=== PATIENT | female | born 1960 | race Caucasian/White ===

== ENCOUNTER 2022-06-07 20:03 | Emergency (ER) | payer BC ==
[~2022-06-07] VITALS: Ht 170.2 cm; Wt 78.0 kg
[2022-06-07] MEDS ORDERED: Percocet 5-3251 EACH PO (23:33)
== END 2022-06-08 00:51 | disposition home or self-care (01) ==
LOC: ER 20:03
DX: S42.211A Unspecified displaced fracture of surgical neck of right humerus, initial encounter for closed fracture (principal); W18.30XA Fall on same level, unspecified, initial encounter
CPT/HCPCS: 73030; 73060; A9270; J1170; J2270; J2405

== ENCOUNTER 2022-07-14 18:44 | Inpatient (IN) | payer BC ==
[~2022-07-14] VITALS: Ht 165.1 cm; Wt 72.0 kg
[~2022-07-14 18:44] MED LIST: Percocet 5-3251 EACH PO
[2022-07-14 19:37] LABS: BASOPHILS ABSOLUTE AUTO 0.06 K/mm3 (0.00-0.23); BASOPHILS PERCENT AUTO 1 % (0-2); EOSINOPHILS ABSOLUTE AUTO 0.02 K/mm3 (0.00-0.68); EOSINOPHILS PERCENT AUTO 0 % (0-6); Hematocrit 32.4 % (33.0-51.0); Hemoglobin 10.9 g/dL (11.5-16.0); IMMATURE GRAN ABSOLUTE AUTO 0.04 K/mm3 (0.00-0.10); IMMATURE GRAN PERCENT AUTO 1 % (0-1); LYMPHOCYTES ABSOLUTE AUTO 0.76 K/mm3 (0.84-5.20); LYMPHOCYTES PERCENT AUTO 14 % (21-46); MONOCYTES ABSOLUTE AUTO 1.07 K/mm3 (0.16-1.47); MONOCYTES PERCENT AUTO 19 % (4-13); Mean Corpuscular HGB 35.2 pg (26.0-34.0); Mean Corpuscular HGB Conc 33.6 g/dL (31.5-36.5); Mean Corpuscular Volume 105 fL (80-100); Mean Platelet Volume 9.9 fL (9.1-12.4); NEUTROPHILS ABSOLUTE AUTO 3.65 K/mm3 (1.96-9.15); NEUTROPHILS PERCENT AUTO 65 % (41-73); Platelet Count 151 K/mm3 (150-400); RDW Coefficient Variation 13.3 % (11.7-14.2); RDW Standard Deviation 51.5 fL (35.1-46.3)
[2022-07-14 20:05] LABS: Alanine Aminotransfer (ALT/SGP 59 U/L (12-78); Albumin, Blood 3.4 g/dL (3.4-5.0); Albumin/Globulin Ratio 0.9 (0.8-1.8); Alk Phos 121 U/L (50-136); Anion Gap 18 mmol/L (6-16); Aspartate Aminotrans (AST/SGOT 127 U/L (12-37); Blood Urea Nitrogen 20 mg/dL (8-24); Bun/Creatinine Ratio 27.8 (12.0-20.0); CO2, Blood 22 mmol/L (21-32); Calcium, Blood 8.5 mg/dL (8.5-10.1); Chloride, Blood 96 mmol/L (98-108); Creatinine, Blood 0.72 mg/dL (0.40-1.00); Globulin, Blood 3.7 g/dL (2.2-4.0); Glomerular Filtration Rate 93 (60-); Glucose, Blood 177 mg/dL (70-99); Potassium, Blood 2.7 mmol/L (3.5-5.5); Sodium, Blood 136 mmol/L (136-145); Total Protein, Blood 7.1 g/dL (6.4-8.2)
[2022-07-14 20:58] LABS: Ethanol (Alcohol), Blood, Med <3 mg/dL
[2022-07-14 21:01] LABS: Magnesium, Blood 1.1 mg/dL (1.6-2.4)
[2022-07-14 22:48] LABS: Base Excess Venous -3.8 mmol/L; Bicarbonate Venous 21.6 mmol/L (24.0-30.0); PCO2 Venous 35.2 mmHg (38-42); pH Blood Venous 7.39 (7.34-7.37)
[2022-07-14 23:15] LABS: International Normalized Ratio 1.07; Prothrombin Time Results 11.2 Sec (9.7-11.5)
[2022-07-15] VITALS (23 sets, daily range): BP systolic 112–161; BP diastolic 68–99
[2022-07-15 03:49] LABS: BASOPHILS ABSOLUTE AUTO 0.02 K/mm3 (0.00-0.23); BASOPHILS PERCENT AUTO 1 % (0-2); EOSINOPHILS PERCENT AUTO 0 % (0-6); Hematocrit 29.7 % (33.0-51.0); IMMATURE GRAN ABSOLUTE AUTO 0.03 K/mm3 (0.00-0.10); IMMATURE GRAN PERCENT AUTO 1 % (0-1); LYMPHOCYTES ABSOLUTE AUTO 0.18 K/mm3 (0.84-5.20); LYMPHOCYTES PERCENT AUTO 7 % (21-46); MONOCYTES ABSOLUTE AUTO 0.17 K/mm3 (0.16-1.47); MONOCYTES PERCENT AUTO 6 % (4-13); Mean Corpuscular HGB 35.2 pg (26.0-34.0); Mean Corpuscular HGB Conc 33.7 g/dL (31.5-36.5); Mean Corpuscular Volume 105 fL (80-100); Mean Platelet Volume 9.8 fL (9.1-12.4); NEUTROPHILS ABSOLUTE AUTO 2.25 K/mm3 (1.96-9.15); NEUTROPHILS PERCENT AUTO 85 % (41-73); Platelet Count 129 K/mm3 (150-400); RDW Coefficient Variation 13.3 % (11.7-14.2); RDW Standard Deviation 50.5 fL (35.1-46.3); Red Blood Cell Count 2.84 M/mm3 (3.80-5.20); White Blood Cell Count 2.65 K/mm3 (4.00-11.30)
[2022-07-15 04:10] LABS: Albumin/Globulin Ratio 0.9 (0.8-1.8); Bilirubin, Total 1.7 mg/dL (0.1-1.0); Bun/Creatinine Ratio 31.5 (12.0-20.0); Calcium, Blood 7.9 mg/dL (8.5-10.1); Creatinine, Blood 0.54 mg/dL (0.40-1.00); Globulin, Blood 3.4 g/dL (2.2-4.0); Magnesium, Blood 2.3 mg/dL (1.6-2.4); Total Protein, Blood 6.4 g/dL (6.4-8.2)
--- NOTE | 2022-07-15 04:40 | NUR ---
END OF SHIFT CIWA 21 ON ADMISSION AND TREATED PER PROTOCOL, BLADDER SCANS X 2 FOLLOWED BY STRAIGHT CATH, UO ADEQUATE, DARK, YELLOW, 1 L NS, MAG AND K REPLACED, 2LPM NC, VSS
[2022-07-15 08:45] LABS: Source, Urine Straight Cath
[2022-07-15 08:49] LABS: Appearance, Urine Clear (Clear); Bilirubin, Urine Neg (Neg); Blood, Urine 1+ (Neg); Color, Urine Yellow (P-Yellow); Glucose Qualitative, Urine 3+ (Neg); Ketones, Urine 4+ (Neg); Leukocyte Esterase, Urine 1+ (Neg); Nitrite, Urine Neg (Neg); Protein, Urine 2+ (Neg); Specific Gravity, Urine 1.015 (1.003-1.022); Urobilinogen, Urine 2+ (Normal); pH, Urine 6.5 (5.0-8.0)
[2022-07-15 09:04] LABS: Bacteria Few /hpf; Mucus Light (0-Heavy); Red Blood Cells, Urine 0-2 /hpf (0-2); Squamous Epithelial Cells Rare /hpf (Few); White Blood Cells, Urine 0-2 /hpf (0-5)
[2022-07-15 15:43] LABS: Albumin, Blood 2.9 g/dL (3.4-5.0); Anion Gap 12 mmol/L (6-16); Blood Urea Nitrogen 15 mg/dL (8-24); Bun/Creatinine Ratio 30.3 (12.0-20.0); CO2, Blood 22 mmol/L (21-32); Calcium, Blood 8.1 mg/dL (8.5-10.1); Chloride, Blood 106 mmol/L (98-108); Glomerular Filtration Rate 105 (60-); Glucose, Blood 173 mg/dL (70-99); Phosphorus, Blood 0.6 mg/dL (2.5-4.9); Potassium, Blood 3.8 mmol/L (3.5-5.5); Sodium, Blood 140 mmol/L (136-145)
--- NOTE | 2022-07-15 18:46 | NUR ---
END OF SHIFT: FANG NEEDED SOME LARGE DOSES OF ATIVAN IN ORDER TO KEEP CIWA BELOW 18. PATIENT HAS BEEN RESPONDING WELL MINUS SLOWLY INCREASED QT. PROVIDER AWARE. PATIENT NEEDED ELECTROLYTE REPLACEMENT. PHOS RUNNING. FANG HAS BEEN COMPLIANT WITH STAYING IN BED Q2 REPOSITIONS HAD RECIEVED 3 STRAGIHT CATHS BEFORE NORWOOD PLACEMENT PATIENT DIURESING. EXP WHEEZES THROUGHOUT THAT IS NOT RESPIRATORY RELATED. BNP WAS ELEVATED AND PENDING AN ECHO LASIX GIVEN AND DIURESING WELL. WILL CONTINUE TO MONITOR UNTIL SHIFT CHANGE.
[2022-07-15] MEDS ORDERED: Seroquel Xr50 MG PO (21:58)
[2022-07-15] MEDS ORDERED: OMEP20ER PO (21:59)
[2022-07-15] MEDS ORDERED: Prozac20 MG PO (21:59)
[2022-07-15] MEDS ORDERED: MELO7.5 PO (22:00)
[2022-07-16] VITALS (7 sets, daily range): BP systolic 124–164; BP diastolic 78–99
[2022-07-16 04:24] LABS: Anion Gap 11 mmol/L (6-16); Blood Urea Nitrogen 14 mg/dL (8-24); Bun/Creatinine Ratio 33.2 (12.0-20.0); CO2, Blood 27 mmol/L (21-32); Calcium, Blood 7.9 mg/dL (8.5-10.1); Chloride, Blood 102 mmol/L (98-108); Creatinine, Blood 0.42 mg/dL (0.40-1.00); Glomerular Filtration Rate 109 (60-); Glucose, Blood 174 mg/dL (70-99); Magnesium, Blood 1.7 mg/dL (1.6-2.4); Phosphorus, Blood 2.8 mg/dL (2.5-4.9); Potassium, Blood 3.1 mmol/L (3.5-5.5); Sodium, Blood 140 mmol/L (136-145)
--- NOTE | 2022-07-16 07:25 | NUR ---
SHIFT SUMMARY PT A/Ox2 BUT REMAINS VERY SLEEPY/LETHARGIC T/O MOST OF THE SHIFT. CONFUSED TO WHERE SHE IS OR HER CURRENTLY SITUATION. CIWA SCORES HAVE BEEN MINIMAL RANGING FROM 8-11. PT MEDICATED ORDERED VIA EMAR. MAINTAINED SPO2 >95% ON RA WELL BIPAP WHEN SHE SLEEPS. NO REPORTS OF SOB OR DYSPNEA REPORTED DURING THE SHIFT. CARDIAC ESPINAL, NO REPORTS OF CP OR PRESSURE, SBP HAS BEEN ELEVATED, BUT PRN LABETALOL WAS NOT NEEDED. NORWOOD CATH PATENT AND DRAINING YELLOW/MOSHE COLORED URINE. PT REPOSITIONED 2 HOURS ORDERED. NO NEW ORDERS AT THIS TIME, WILL REPORT TO ONCOMING RN. MANDI GA T/O THE SHIFT
--- NOTE | 2022-07-16 10:27 | NUR ---
THIS RN CALLED DR. BRENNAN TO DISCUSS LIBRIUM AND HOME MEDS. DR. BRENNAN TO PLACE ORDERS.
--- NOTE | 2022-07-16 10:45 | NUR ---
PT A&O2-3, PLEASANT AND COOPERATIVE WITH CARE. LETHARGIC, BUT EASILY AROUSABLE. TREMORS PRESENT. PT STATED SHE WAS ANXIOUS AND SLIGHTLY AGGITATED THIS MORNING, MEDICATED PER MAY. PT BARELY TOUCHED HER BREAKFAST, DENIED NAUSEA/VOMITING. SHE DID DRINK 120ML'S OF ORANGE JUICE WITH HER MORNING MEDICATIONS. EXPIRATORY WHEEZES AUSCULTATED THROUGHOUT LUNGS. PT ON ROOM AIR SATING ABOVE 94%, DENIES SOB, OCCASIONAL COUGH. HR SR/ST 90'S-100'S. PT DENIES CHEST PAIN/PRESSURE. BRUISING OF R UPPER ARM, PREVIOUS FX FROM FALL A COUPLE MONTHS AGO PER PT AND REPORT. NORWOOD CATH IN PLACE AND DRAINING TO GRAVITY, MOSHE COLORED URINE. PT RESTING IN BED WITH CALL LIGHT WITHIN REACH.
--- NOTE | 2022-07-16 14:19 | NUR ---
PT STATED SHE WANTED TO USE RESTROOM. ATTEMPTED TO GET PT UP TO BEDSIDE COMMODE. PT MADE IT TO EDGE OF BED, SOB, R ARM PAIN. LAID PT BACK DOWN FOR BED GALVAN INSTEAD. ONCE ON BED GALVAN PT STATED SHE DIDN'T HAVE TO GO TO THE BATHROOM. PT HAD A SMEAR. ARIAS AREA, COCCYS, AND NORWOOD TUBING CLEANED THOROUGHLY. MEPILEX REPLACED. SMALL AREA OF EXCORIATED SKIN ON COCCYS, BARRIER CREAM APPLIED. PT GIVEN A VANILLA ENSURE. PT RESTING UPRIGHT IN BED WATCHING TV. CALL LIGHT WITHIN REACH.
--- NOTE | 2022-07-16 18:50 | NUR ---
NO ACUTE CHANGES, SEE PREVIOUS NOTES. CIWA'S PERFORMED AND PT MEDICATED PER MAR. NO CHANGES TO TELE, HR SR/ST 90'S-100'S. PT CONTINUES TO DENY SOB/CHEST PAIN/PRESURE. PT RESTING IN BED WITH TV ON. CALL LIGHT WITHIN REACH.
--- NOTE | 2022-07-16 18:57 | NUR ---
THIS RN HAS REVIEWED AND AGREES WITH ALL WORKERS COMPENSATION EXAMINER DOCUMENTATION.
[2022-07-17] VITALS (7 sets, daily range): BP systolic 122–164; BP diastolic 84–108
[2022-07-17 05:17] LABS: BASOPHILS PERCENT AUTO 0 % (0-2); EOSINOPHILS PERCENT AUTO 0 % (0-6); Hematocrit 31.5 % (33.0-51.0); Hemoglobin 10.6 g/dL (11.5-16.0); IMMATURE GRAN ABSOLUTE AUTO 0.14 K/mm3 (0.00-0.10); IMMATURE GRAN PERCENT AUTO 3 % (0-1); LYMPHOCYTES ABSOLUTE AUTO 0.64 K/mm3 (0.84-5.20); LYMPHOCYTES PERCENT AUTO 13 % (21-46); MONOCYTES ABSOLUTE AUTO 0.39 K/mm3 (0.16-1.47); MONOCYTES PERCENT AUTO 8 % (4-13); Mean Corpuscular HGB 34.8 pg (26.0-34.0); Mean Corpuscular HGB Conc 33.7 g/dL (31.5-36.5); Mean Corpuscular Volume 103 fL (80-100); Mean Platelet Volume 9.7 fL (9.1-12.4); NEUTROPHILS ABSOLUTE AUTO 3.94 K/mm3 (1.96-9.15); NEUTROPHILS PERCENT AUTO 77 % (41-73); Platelet Count 153 K/mm3 (150-400); RDW Coefficient Variation 13.1 % (11.7-14.2); RDW Standard Deviation 49.6 fL (35.1-46.3); Red Blood Cell Count 3.05 M/mm3 (3.80-5.20); White Blood Cell Count 5.11 K/mm3 (4.00-11.30)
[2022-07-17 06:04] LABS: Albumin, Blood 2.9 g/dL (3.4-5.0); Albumin/Globulin Ratio 0.9 (0.8-1.8); Bilirubin, Total 1.2 mg/dL (0.1-1.0); Bun/Creatinine Ratio 38.4 (12.0-20.0); Calcium, Blood 8.2 mg/dL (8.5-10.1); Creatinine, Blood 0.47 mg/dL (0.40-1.00); Globulin, Blood 3.4 g/dL (2.2-4.0); Magnesium, Blood 1.6 mg/dL (1.6-2.4); Phosphorus, Blood 4.2 mg/dL (2.5-4.9); Potassium, Blood 3.2 mmol/L (3.5-5.5); Total Protein, Blood 6.3 g/dL (6.4-8.2)
--- NOTE | 2022-07-17 06:17 | NUR ---
WEDDING COORDINATOR SUMMARY ASSUMED CARE OF THE PT AT 1900. SHE IS ALERT AND ORIENTED X2-3, LETHARGIC AFTER WITHDRAWAL MEDICATION. PT CIWAS RANGING FROM 7 TO 13 OVER THE PAST 24 HOURS. GIVEN ONE DOSE OF IV ATIVAN AND ONE DOSE OF 50 MG OF LIBRIUM THIS SHIFT. PT GIVEN ONE DOSE OF PAIN MEDICATION FOR THE RIGHT HUMERUS FX. SHE IS REQUESTING TO GET UP BUT IS VERY WEAK AND TREMULOUS. SINUS AND SINUS TACH ON THE TELE. SATURATION MID TO HIGH 90S ON RA. CPAP WORN AT HS. TWO LIQUID BMS THIS SHIFT. NO ORAL INTAKE.
--- NOTE | 2022-07-17 19:27 | NUR ---
SHIFT SUMMARY PT A/OX 3 AND COOPERATIVE OF CARE. PT AWARE OF ETOH WITHDRAWALS AND SYMPTOMS. PT VSS THROUGHOUT SHIFT WITH 02 SATS IN THE 90'S ON RA. NO REPORT OF CHEST PAIN/PRESSURE THROUGHOUT SHIFT. PT REPORTS PAIN OF RIGHT SHOULDERM TREATED PER EMAR. NO REPORT OF SOB/DYSPNEA THROUGHOUT SHIFT. NORWOOD IN PLACE DRAINING TO GRAVITY. PT ATTEMPTED TO GET OUT OF BED TWICE DURING SHIFT REPORTING "I HAVE TO GO PEE." PT REMINDED THAT A NORWOOD IS IN PLACE AND REDIRECTED TO REMAIN IN BED. PT CIWA RANGED 10-13 THROUGHOUT SHIFT, TREATED PER EMAR.
[2022-07-18 04:08] VITALS: BP 152/101
--- NOTE | 2022-07-18 04:46 | NUR ---
SHIFT SUMMARY NO ACUTE CHANGES. VSS. REMAINS IN SHOULDER IMMOBILIZER. CIWA'S BEING MANAGED PER EMAR. TREMORS CONTINUE TO BE THE MOST EXTREME WITHDRAWAL SYMPTOM BEING EXPERIENCED BY PATIENT. PT COMPLETELY AXO TO PLACE AND SITUATION. NOT IMPULSIVE FOR THIS RN. CONTINENT. NORWOOD PATENT AND RAINING. POWERLIDE PATENT. BED ALARM IN PLACE.
[2022-07-18 08:11] VITALS: BP 136/102
[2022-07-18 10:11] LABS: Albumin, Blood 2.9 g/dL (3.4-5.0); Anion Gap 6 mmol/L (6-16); Blood Urea Nitrogen 20 mg/dL (8-24); Bun/Creatinine Ratio 37.9 (12.0-20.0); CO2, Blood 30 mmol/L (21-32); Chloride, Blood 104 mmol/L (98-108); Creatinine, Blood 0.53 mg/dL (0.40-1.00); Glomerular Filtration Rate 103 (60-); Glucose, Blood 120 mg/dL (70-99); Magnesium, Blood 1.6 mg/dL (1.6-2.4); Phosphorus, Blood 4.7 mg/dL (2.5-4.9); Potassium, Blood 3.6 mmol/L (3.5-5.5); Sodium, Blood 140 mmol/L (136-145)
[2022-07-18 13:11] VITALS: BP 140/99
[2022-07-18 16:27] VITALS: BP 121/87
--- NOTE | 2022-07-18 18:44 | NUR ---
SHIFT SUMMARY DROWSY, DISORIENTED, FORGETFUL, CIWAS 8-15. LIBRIUM 50 X2, NO ATIVAN THIS SHIFT. REPORTS HEADACHE, ANXIETY, UNSURE OF DATE, UNSURE OF REASON FOR ADMISSION, GROSS TREMORS, DIZZY, WEAK. TAKES FREQUENT NAPS. O2 WEANED TO RA THIS SHIFT, PER REPORT REQUIRES CPAP WITH 2L O2 AT NOC FOR DESAT. NO DESAT THIS SHIFT. TELE SR 80S, WITH OCC RUNS OF ST. TOLERATES BITES OF REG DIET AND THINS LIQUIDS. NEEDS ENCOURAGEMENT TO TAKE FLUIDS. LOW URINE OUTPUT, NORWOOD DC'D IN AM, 350 OUTPUT. 2 PERSON MAX ASSIST WITH GB [place] [facility] [place] R HUMERUS FX IN IMMOBILIZER. PG TO MICHELLE FLUSHES EASILY, DOES NOT DRAW. MEDICATED FOR PAIN PER EMAR. BRUSIING NOTED TO R ARM. COCCYX RED, MEPILEX IN PLACE. ATTENDS IN PLACE. Q2 HR TURN. PLAN FOR DC TO SNF VS INPATIENT RESIDENT SUBSTANCE TREATMENT ONCE PAST ETOH WITHDRAWAL. CARE MANAGEMENT UPDATED AT END OF DAY.
[2022-07-18 20:54] VITALS: BP 122/86
[2022-07-18 23:53] VITALS: BP 146/107
[2022-07-19 04:15] VITALS: BP 131/96
[2022-07-19 05:15] LABS: Albumin, Blood 2.7 g/dL (3.4-5.0); Anion Gap 6 mmol/L (6-16); Blood Urea Nitrogen 16 mg/dL (8-24); Bun/Creatinine Ratio 35.1 (12.0-20.0); CO2, Blood 29 mmol/L (21-32); Chloride, Blood 102 mmol/L (98-108); Creatinine, Blood 0.46 mg/dL (0.40-1.00); Glomerular Filtration Rate 107 (60-); Glucose, Blood 157 mg/dL (70-99); Magnesium, Blood 1.8 mg/dL (1.6-2.4); Phosphorus, Blood 4.8 mg/dL (2.5-4.9); Potassium, Blood 4.2 mmol/L (3.5-5.5); Sodium, Blood 137 mmol/L (136-145)
--- NOTE | 2022-07-19 06:11 | NUR ---
SHIFT SUMMARY PATIENT ALERT BUT FALLS ASLEEP EASILY, ORIENTED x2-3. VITALS STABLE, PATIENT WORE CPAP FOR MAJORITY OF SHIFT WITH SPO2 >92%. CIWA <8 DURING THE SHIFT, NO MEDICATIONS NEEDED. IMMOBILIZER TO RIGHT ARM IN PLACE. INCONTINENT, ATTENDS IN PLACE. TURNED Q2. NO OTHER CHANGES, WILL REPORT TO DAY SHIFT RN.
--- NOTE | 2022-07-19 08:00 | NUR ---
ASSUMED CARE PT SITTING UP ON THE EDGE OF THE BED WITH PHYSICAL THERAPY. PT. ALERT THIS AM, ANSWERING QUESTIONS. SEE CIWA ASSESSMENT. PT. PAINFUL WITH MOVEMENT, AND VERY WEAK. PT. VSS THIS AM, REMAINS ON RA AT THIS TIME.
[2022-07-19 09:15] VITALS: BP 95/80
--- NOTE | 2022-07-19 09:57 | NUR ---
BED BATH COMPLETED PT. ABLE TO ASSIST BUT REMAINS VERY WEAK. LINENS AND ATTENDS CHANGED.
--- NOTE | 2022-07-19 14:11 | NUR ---
ATTEMPTED TO STAND AND TRANSFER PATIENT WITH 2 PEOPLE, WALKER AND GAIT BELT, PT WAS REQUESTING TO GET UP TO THE BEDSIDE COMMODE. PT. VERY VERY WEAK. NEEDED MAX ASSIST TO STAND AND WAS NOT STABLE ON FEET, PT UNABLE TO SHIFT WEIGHT FOR TRANSFER. PT. PLACED BACK IN BED TO USE BEDPAN, AFTER USE OF BED GALVAN PHOTO TAKEN OF BUTTOCK EXCORIATION FOR CHART. CREAM APPLIED.
[2022-07-19 14:40] VITALS: BP 132/98
--- NOTE | 2022-07-19 15:04 | NUR ---
REPORT TO SHITAL BURGESS
[2022-07-19 16:13] VITALS: BP 116/93
--- NOTE | 2022-07-19 16:30 | NUR ---
CALL TO DR BRENNAN NOTIFIED PROVIDER OF PT'S MOSHE-BROWNISH URINE, ORDER FOR URINALYSIS OBTAINED.
[2022-07-19 21:08] VITALS: BP 140/95
--- NOTE | 2022-07-19 22:14 | NUR ---
TRANSFER NOTE RECEIVED PT FROM PCU. PT ABLE TO GIVE NAME. NOTE RIGHT ARM IN IMMOBILIZER - SOME BRUISES NOTED. AUDIT OFFICER REPORTED PT HAD FALLEN ABOUT A"MONTH AGO" AND HAD FX OF HUMEROUS. MED TELE - SR AT 82. AWAITING URINE SPECIMEN AUDIT OFFICER REPORTED FOLWY REMOVED. CALL LIGHT IN REACH. BED ALARM ON FOR SAFETY.
[2022-07-20 00:24] LABS: Source, Urine Clean Catch
[2022-07-20 00:31] LABS: Bilirubin, Urine Neg (Neg); Blood, Urine Neg (Neg); Glucose Qualitative, Urine Neg (Neg); Ketones, Urine 1+ (Neg); Leukocyte Esterase, Urine 1+ (Neg); Nitrite, Urine Neg (Neg); Protein, Urine 1+ (Neg); Urobilinogen, Urine 3+ (Normal)
[2022-07-20 00:44] LABS: Appearance, Urine Hazy (Clear); Color, Urine Yellow (P-Yellow)
[2022-07-20 00:45] LABS: Bacteria Few /hpf; Red Blood Cells, Urine Not Seen /hpf (0-2); Squamous Epithelial Cells Mod /hpf (Few); White Blood Cells, Urine 0-2 /hpf (0-5)
[2022-07-20 00:46] LABS: Other Crystals Many /hpf
[2022-07-20 03:03] VITALS: BP 155/100
--- NOTE | 2022-07-20 04:08 | NUR ---
POWDER SHOVELER SUMMARY PT CAME TO FLOOR FROM THE PCU EARLIER IN THE SHIFT WITH DX OF COPD - ACUTE EXACERBATION. ALSO CIWAS FOR ETOH ABUSE. ALERT AND ORIENTED X 1-2. UNSTEADY ON FEET. NORWOOD OUT IN PCU. VOIDED IN BEDPAN. UA SENT TO LAB. MED TELE SR AT 82. HAD BEEN RESTING QUIETLY, THEN WHEN AWAKENED FOR VITALS, VOICED PAIN AND "BLOATING". BP 150/100. ANALGESIC ADMINISTERD AND ZOFRAN ORDERED FOR NAUSEA. MEDS EFFECTIVE. HAS BEEN RESTING QUIETLY AT INTERVALS. CALL LIGHT IN REACH. BED ALARM ON WHILE IN BED
[2022-07-20 05:35] LABS: Albumin, Blood 2.8 g/dL (3.4-5.0); Anion Gap 6 mmol/L (6-16); Blood Urea Nitrogen 16 mg/dL (8-24); Bun/Creatinine Ratio 32.3 (12.0-20.0); CO2, Blood 28 mmol/L (21-32); Calcium, Blood 8.3 mg/dL (8.5-10.1); Chloride, Blood 103 mmol/L (98-108); Glomerular Filtration Rate 105 (60-); Glucose, Blood 137 mg/dL (70-99); Magnesium, Blood 1.9 mg/dL (1.6-2.4); Phosphorus, Blood 4.2 mg/dL (2.5-4.9); Potassium, Blood 4.5 mmol/L (3.5-5.5); Sodium, Blood 137 mmol/L (136-145)
[2022-07-20 07:40] VITALS: BP 150/93
[2022-07-20 15:03] VITALS: BP 141/95
--- NOTE | 2022-07-20 17:14 | NUR ---
SHIFT SUMMARY PT ALERT TO SELF. COOPERATIVE OF CARE. PT ATTEMPTED TO GET OOB T/O DAY. PT STATED WANTING TO GO OUT TO SMOKE. DR BRENNAN CALLED AND ORDER GIVEN FOR NICOTINE PATCH. PT AT TIMES WANTED OUT OF BED TO VISIT MOM. PT EASILY REDIRECTED. PT DID NOT C/O PAIN BUT WHEN ASKED VERBALIZED FEELING PAIN IN ARM. MEDICATED PER EMAR WITH GOOD EFFECT. BED ALARM ON. BED IN LOWEST POSITION AND CALL LIGHT IN REACH.
[2022-07-20 19:14] VITALS: BP 119/81
--- NOTE | 2022-07-21 03:55 | NUR ---
MULTIFOCAL LENS INSPECTOR SUMMARY VSS. VERBAL RESPONSE MORE COHERENT THIS SHIFT THAN NOTED 24 HR PREVIOUSLY. BUT STILL REQUIRING VERBAL CUES TO REMAIN IN BED, USE CALL LIGHT, ETC. CONTINENT WITH BEDPAN. LUNG SOUNDS DIMINISHED IN AREAS. TOLERATING FLUIDS AND INTAKE WITHOUT NOTED DIFFICULTIES. HAS BEEN RESTING QUIETLY WITH FEW INTERRUPTIONS. CALL LIGHT IN ERACH. BED ALARM ON FOR SAFETY. WILL CONTINUE TO MONITOR
[2022-07-21 04:40] VITALS: BP 141/97
[2022-07-21 07:22] VITALS: BP 143/95
[2022-07-21 15:33] VITALS: BP 137/101
[2022-07-21] MEDS ORDERED: ACET325 PO (16:34)
[2022-07-21] MEDS ORDERED: FLUOXETINE HCL20 M1 PO (16:35)
[2022-07-21] MEDS ORDERED: MAGNESIUM OXID500 MG PO (16:35)
[2022-07-21] MEDS ORDERED: Nicoderm Cq1 EAC1 TOP (16:35)
[2022-07-21] MEDS ORDERED: FOLI1 PO (16:35)
[2022-07-21 16:36] LABS: Influenza A, PCR NEGATIVE (NEGATIVE); Influenza B, PCR NEGATIVE (NEGATIVE); Resp Syncytial Virus, PCR NEGATIVE (NEGATIVE); SARS-Cov-2 (COVID-19) PCR, MMC NEGATIVE (NEGATIVE)
[2022-07-21] MEDS ORDERED: PERCOCET 10-321 EA10 (16:36)
[2022-07-21] MEDS ORDERED: OXAYDO5 M1 PO (16:36)
[2022-07-21] MEDS ORDERED: K-Phos Origina500 MG PO (16:37)
[2022-07-21] MEDS ORDERED: Seroquel Xr50 MG PO (16:38)
[2022-07-21] MEDS ORDERED: B-1100 M1 PO (16:38)
== END 2022-07-21 17:35 | DRG 191 ==
LOC: ER 18:44 → MEDS 22:19 → PCU 22:19 → MEDS 07-19 22:02
PROVIDERS: Emergency Medicine; Internal Medicine; Student in an Organized Health Care Education/Training Program; ADMIT Student in an Organized Health Care Education/Training Program
PROC: HZ2ZZZZ Detoxification Services for Substance Abuse Treatment (ICD-10-PCS; principal; 2022-07-14)
DX: J44.1 Chronic obstructive pulmonary disease with (acute) exacerbation (principal); F10.239 Alcohol dependence with withdrawal, unspecified; K75.81 Nonalcoholic steatohepatitis (NASH); J98.01 Acute bronchospasm; E87.6 Hypokalemia; Z20.822 Contact with and (suspected) exposure to COVID-19; G47.33 Obstructive sleep apnea (adult) (pediatric); R09.02 Hypoxemia; R94.31 Abnormal electrocardiogram [ECG] [EKG]; E83.42 Hypomagnesemia; I10 Essential (primary) hypertension; F17.210 Nicotine dependence, cigarettes, uncomplicated; Z96.632 Presence of left artificial wrist joint; Z87.81 Personal history of (healed) traumatic fracture; Z90.49 Acquired absence of other specified parts of digestive tract; Z90.89 Acquired absence of other organs; Z98.890 Other specified postprocedural states; Z71.41 Alcohol abuse counseling and surveillance of alcoholic; Y90.0 Blood alcohol level of less than 20 mg/100 ml
CPT/HCPCS: 0241U; 36415; 51701; 51702; 71045; 76705; 80053; 80069; 81001; 82803; 83735; 83880; 84100; 84484; 85025; 85610; 93005; 93010; 93306; 94640; 94644; 94660; 94664; 94762; 96365; 96366; 96368; 96375; 96376; 97110; 97162; 97166; 97530; 99285-25; A9270; C1751; G0480; J0456; J1650; J1940; J2060; J2405; J2920; J2930; J3411; J3475; J3480; J7030; J7040; J7050; J7060

== ENCOUNTER 2023-01-07 09:32 | Inpatient (IN) | payer BC ==
[~2023-01-07] VITALS: Ht 165.1 cm; Wt 65.5 kg
[~2023-01-07 09:32] MED LIST changes: +ACET325 PO; +B-1100 M1 PO; +FLUOXETINE HCL20 M1 PO; +FOLI1 PO; +K-Phos Origina500 MG PO; +MAGNESIUM OXID500 MG PO; +MELO7.5 PO; +Nicoderm Cq1 EAC1 TOP; +OMEP20ER PO; +OXAYDO5 M1 PO; +PERCOCET 10-321 EA10; +Prozac20 MG PO; +Seroquel Xr50 MG PO
[2023-01-07 09:56] LABS: BASOPHILS ABSOLUTE AUTO 0.06 K/mm3 (0.00-0.23); BASOPHILS PERCENT AUTO 2 % (0-2); EOSINOPHILS ABSOLUTE AUTO 0.02 K/mm3 (0.00-0.68); EOSINOPHILS PERCENT AUTO 1 % (0-6); Hematocrit 34.5 % (33.0-51.0); Hemoglobin 11.7 g/dL (11.5-16.0); IMMATURE GRAN ABSOLUTE AUTO 0.02 K/mm3 (0.00-0.10); IMMATURE GRAN PERCENT AUTO 1 % (0-1); LYMPHOCYTES ABSOLUTE AUTO 0.57 K/mm3 (0.84-5.20); LYMPHOCYTES PERCENT AUTO 14 % (21-46); MONOCYTES ABSOLUTE AUTO 0.36 K/mm3 (0.16-1.47); MONOCYTES PERCENT AUTO 9 % (4-13); Mean Corpuscular HGB 34.4 pg (26.0-34.0); Mean Corpuscular HGB Conc 33.9 g/dL (31.5-36.5); Mean Corpuscular Volume 102 fL (80-100); Mean Platelet Volume 9.5 fL (9.1-12.4); NEUTROPHILS ABSOLUTE AUTO 2.95 K/mm3 (1.96-9.15); NEUTROPHILS PERCENT AUTO 74 % (41-73); Platelet Count 99 K/mm3 (150-400); RDW Coefficient Variation 13.7 % (11.7-14.2); White Blood Cell Count 3.98 K/mm3 (4.00-11.30)
[2023-01-07] MEDS ORDERED: OXYCODONE-ACET1 EAC3 PO (10:11)
[2023-01-07] MEDS ORDERED: OMEP20ER PO (10:11)
[2023-01-07 10:19] LABS: Albumin, Blood 3.7 g/dL (3.4-5.0); Albumin/Globulin Ratio 1.1 (0.8-1.8); Bilirubin, Total 0.5 mg/dL (0.1-1.0); Bun/Creatinine Ratio 31.3 (12.0-20.0); Calcium, Blood 8.3 mg/dL (8.5-10.1); Creatinine, Blood 0.64 mg/dL (0.40-1.00); Globulin, Blood 3.3 g/dL (2.2-4.0); Potassium, Blood 3.8 mmol/L (3.5-5.5)
[2023-01-07 12:10] LABS: Magnesium, Blood 1.6 mg/dL (1.6-2.4); Phosphorus, Blood 3.5 mg/dL (2.5-4.9)
[2023-01-07 12:50] VITALS: BP 136/79
[2023-01-07] MEDS ORDERED: Prozac20 MG PO (14:00)
[2023-01-07] MEDS ORDERED: MELO7.5 PO (14:00)
[2023-01-07] MEDS ORDERED: BUPR150ER PO (14:00)
[2023-01-07] MEDS ORDERED: Seroquel Xr50 MG PO (14:01)
[2023-01-07] MEDS ORDERED: AMLO10 PO (14:02)
[2023-01-07 15:31] VITALS: BP 134/88
--- NOTE | 2023-01-07 17:53 | NUR ---
SHIFT SUMMARY: PT IS A PLEASANT AND COOPERATIVE 62 YEAR OLD FEMALE HERE FOR ALCOHOL WITHDRAWAL. HER MAIN COMPLAINT IS TREMORS AND ANXIETY CAUSED BY THE TREMORS SHE STATES. SHE IS ALERT AND ORIENTED SCORING 6 ON HER CIWAS. TREATING NEEDED FOR SYMPTOMS. 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 THEY DO HAVE CAREGIVERS THROUGH BY YOUR SIDE THAT COME TO THE HOUSE. PT IS A DAILY SMOKER; 4 CIGARETTES DAILY, BUT REFUSED NICOTINE REPLACEMENT. SHE HAS ALSO UNDERGONE ETOH TREATMENT 3 YEARS AGO SHE SHARED. SHE IS IN BED, USES HER CALL LIGHT APPROPRIATELY, AND NO SIGNS OR SYMPTOMS OF DISTRESS. PLAN OF CARE ONGOING.
[2023-01-07 19:27] VITALS: BP 136/82
[2023-01-08 04:26] VITALS: BP 146/86
--- NOTE | 2023-01-08 05:02 | NUR ---
SHIFT SUMMARY. PT A/O AND COOPERATIVE UNABLE TO STAND ON HER OWN BECAUSE OF HER SEVER TREMORS AND HAS APPROPPRIATLY CALLED TO TRANSFER TO BEDSIDE COMMODE, PT VERY UNSTABLE ON FEET AND TREMULOUS,PT MEDICATED WITH PRN MEDICATION THAT SEEMED TO WORK A LITTLE PER PT CLAIM, WHEN NOTINF THE TREMOERS THEY STILL LOOK THE SAME AND SEVERE. WITH CONT TO MONITOR.
[2023-01-08 05:12] LABS: Hematocrit 34.7 % (33.0-51.0); Hemoglobin 11.8 g/dL (11.5-16.0); Mean Corpuscular HGB 34.1 pg (26.0-34.0); Mean Corpuscular Volume 100 fL (80-100); Platelet Count 80 K/mm3 (150-400); RDW Coefficient Variation 13.3 % (11.7-14.2); RDW Standard Deviation 49.4 fL (35.1-46.3); Red Blood Cell Count 3.46 M/mm3 (3.80-5.20); White Blood Cell Count 2.89 K/mm3 (4.00-11.30)
[2023-01-08 05:47] LABS: Albumin, Blood 3.4 g/dL (3.4-5.0); Albumin/Globulin Ratio 1.1 (0.8-1.8); Bilirubin, Total 0.8 mg/dL (0.1-1.0); Bun/Creatinine Ratio 25.4 (12.0-20.0); Calcium, Blood 8.6 mg/dL (8.5-10.1); Creatinine, Blood 0.59 mg/dL (0.40-1.00); Magnesium, Blood 1.6 mg/dL (1.6-2.4); Phosphorus, Blood 3.1 mg/dL (2.5-4.9); Potassium, Blood 3.6 mmol/L (3.5-5.5); Total Protein, Blood 6.4 g/dL (6.4-8.2)
[2023-01-08 07:27] VITALS: BP 141/72
--- NOTE | 2023-01-08 19:04 | NUR ---
SHIFT SUMMARY: PT IS A PLEASANT AND COOPERATIVE 62 YEAR OLD FEMALE HERE FOR ALCOHOL WITHDRAWAL. SHE HAS IMPROVE TODAY WITH HER TREMORS BEING LESS SEVERE AND HER NOW BEING ABLE TO MORE EASILY AMBULATE. HER MOOD IS IMPROVED WELL. CONTINUE TO GIVE LIBRIUM AND SCHEDULED AND ATIVAN NEEDED. CIWAS OF 6 OR LESS THROUGHOUT THE SHIFT. SHE IS IN BED RESTING, BED IN LOWEST POSTITION AND CALL LIGHT WITHIN REACH. PLAN OF CARE ONGOING.
[2023-01-08 19:18] VITALS: BP 140/85
[2023-01-09 03:38] VITALS: BP 149/89
[2023-01-09 05:24] LABS: Albumin, Blood 3.4 g/dL (3.4-5.0); Anion Gap 5 mmol/L (6-16); Blood Urea Nitrogen 13 mg/dL (8-24); Bun/Creatinine Ratio 21.8 (12.0-20.0); CO2, Blood 24 mmol/L (21-32); Calcium, Blood 8.7 mg/dL (8.5-10.1); Chloride, Blood 109 mmol/L (98-108); Glomerular Filtration Rate 100 (60-); Glucose, Blood 93 mg/dL (70-99); Magnesium, Blood 1.6 mg/dL (1.6-2.4); Phosphorus, Blood 3.6 mg/dL (2.5-4.9); Potassium, Blood 3.6 mmol/L (3.5-5.5); Sodium, Blood 138 mmol/L (136-145)
--- NOTE | 2023-01-09 06:24 | NUR ---
A/O PT TREMORS LESS FROM YESTURDAY STATES SHES DOING BETTER. TO ME PT SEEMS A LITTLE MORE IMPULSIVE POSSIBLY STARTING REAL WITHDRAWL. HAS ATTEMPTED TO STAND WITHOUT CALL BUT BED ALARM SOUNDED WHICH UPSET PT STATING THAT SHE FELT SHE WAS IN RESIDENTIAL. I REAFFIRMED HER THAT IT WAS FOR HER SAFTEY BUT PT UPSET BY IT. WILL CONT TO MONITOR PT , HASNT ATTEMPTED TO GET OUT OF BED SINCE WE SPOKE .
[2023-01-09 07:24] VITALS: BP 147/99
[2023-01-09 16:05] VITALS: BP 136/88
--- NOTE | 2023-01-09 18:24 | NUR ---
SHIFT SUMMARY: PATIENT IS A PLEASANT AND COOPERATIVE 62 YEAR OLD FEMALE HERE RECOVERING FROM ETOH WITHDRAWAL. SHE HAS BECOME MORE IRRIATBLE TODAY AND BECOMING MORE ANXIOUS WITH HER CONDITION AND IT CAUSING HER INABLILITY TO RETURN HOME TO TAKE CARE OF HER MOTHER. SHE HAS BEEN AMBULATORY IN HER ROOM WITH A SHUFFLED AND WEAKENED GAIT, BUT IS MOTIVATED TO GET BETTER/STRONGER. CIWAS HAVE REMAINED BELOW 6 AND CONTINUE TO TREAT WITHDRAWAL SYMPTOMS. PLAN IS TO DISCHARGE TO [facility] FOR REBILITATION. PATIENT IS IN BED, LOWEST POSITION, AND CALL LIGHT WITHIN REACH. PLAN OF CARE ONGOING.
[2023-01-09 19:17] VITALS: BP 128/78
--- NOTE | 2023-01-10 00:51 | NUR ---
CALLED INTO HOSPITALIST. PT C/O ANXIETY, CALLED DR. JOHNSON TO SEE IF IT WOULD BE POSSIBLE TO GET THE PT SOMETHING FOR ANXIETY PRN. DR. JOHNSON TO REVIEW PT CHART AND MAKE CHANGES IF APPLICABLE.
--- NOTE | 2023-01-10 01:02 | NUR ---
RECEIVED CALL FROM DR. ELIZABETH JOHNSON CALLED TO UPDATE THIS RN THAT HE HAD REVIEWED THE PT. CHART AND THAT NO CHANGES TO BE MADE AT THIS TIME.
[2023-01-10 04:12] VITALS: BP 134/95
[2023-01-10 07:27] VITALS: BP 119/86
--- NOTE | 2023-01-10 07:52 | NUR ---
SHIFT SUMMARY PT IS A&O X3/4. PT REPORTS THAT SHE HAS DEPRESSION AND IS ANXIOUS. CIWA SCORES HAVE REMAINED <8 THIS SHIFT. PT DENIES CHEST PAIN/PRESSURE/TIGHTNESS. PAIN ASSESSED-PT REPORTS PAIN IN RT SHOULDER; MEDICATED PER EMAR. PT SLEPT WELL T/O SHIFT, CALLS APPROPRIATELY, AMBULATES WITH ONE PERSON, FWW, AND GAIT BELT TO THE RESTROOM. BED IS LOCKED IN THE LOWEST POSITION WITH BED EXIT ENGAGED.
[2023-01-10 13:41] LABS: Free Thyroxine 0.89 ng/dL (0.70-1.60)
[2023-01-10 13:44] LABS: Thyroid Stimulating Hormone 1.64 uIU/mL (0.360-4.800); Triiodothyronine, Free 2.62 pg/mL (2.18-3.98)
--- NOTE | 2023-01-10 15:29 | NUR ---
NOTE: PATIENT LEFT THE ROOM AT THIS TIME TO MRI.
[2023-01-10 16:02] VITALS: BP 127/83
--- NOTE | 2023-01-10 16:04 | NUR ---
NOTE: PATIENT BACK IN ROOM AT THIS TIME FROM MRI, ASSISTED BACK IN BED. BED ALARM ON FOR SAFETY. CALL LIGHT IN REACH.
--- NOTE | 2023-01-10 16:56 | NUR ---
SHIFT SUMMARY: PATIENT IS A/OX4. ANXIOUS AT TIMES. VISIBLE TREMORS TO BUE'S, CIWA ASSESSMENT SCORE OF 5. PATIENT IS PLEASANT AND COOPERATIVE c CARE PROVIDED. PATIENT DENIES CP/PRESSURE, N/V, HALLUCINATION, SOB AND DIZZINESS. PATIENT REPORTS PAIN 7/10 TO R SHOULDER/FOREARM, MEDICATED c PRN PO PAIN MEDS PER EMAR c GOOD EFFECT. PATIENT IS TOLERATING PO INTAKE WELL, CONTINENCE OF BLADDER AND AMBULATES TO BATHROOM c SBA, GAITBELT AND FWW. PATIENT WORKS c PT MOBILITY THIS AM AND TOLERATED WELL. PT RECOMMENDED SNF. PATIENT HAD HEAD MRI DONE THIS PM c RESULT. PATIENT RECEIVED SCHEDULED MEDS PER EMAR. VITAL SIGNS REVIEWED. BED ALARM ON FOR SAFETY. CALL LIGHT IN REACH.
[2023-01-10 19:09] VITALS: BP 114/79
[2023-01-11 03:55] VITALS: BP 123/84
--- NOTE | 2023-01-11 04:57 | NUR ---
SHIFT SUMMARY NO ACUTE CHANGES. PATIENT HAS SLEPT WELL T/O NIGHT WITH RESPIRATIONS EQUAL AND UNLABORED. EASY AROUSABLE FOR SCHEDULED MEDS. PATIENT IS PLEASANT, COOPERATIVE, AND ABLE TO MAKE HER NEEDS KNOWN. TREMORS PRESENT. BED IS LOCKED IN THE LOWEST POSITION WITH CALL LIGHT IN REACH. NO S/S OF DISTRESS NOTED AT THIS TIME.
[2023-01-11 08:05] VITALS: BP 107/77
[2023-01-11 16:14] VITALS: BP 95/76
--- NOTE | 2023-01-11 16:56 | NUR ---
SHIFT SUMMARY: NO NEW ACUTE CHANGES IN PATIENT CONDITION THIS SHIFT. PATIENT IS A/OX4. CALM, PLEASANT AND COOPERATIVE c CARE PROVIDED. VISIBLE TREMORS TO BUE'S HAS IMPROVED TODAY COMPARED YESTERDAY. PAIN TO R SHOULDER/FOREARM WELL CONTROLLED c EMAR PAIN MEDS. PATIENT SHOWERED THIS AM c ASSISTANCE, CONTINENCE OF BLADDER AND HAS BEEN AMBULATING TO BATHROOM c SBA, GAITBELT AND FWW T/O SHIFT. PATIENT DENIES CP/PRESSURE, SOB, N/V AND DIZZINESS. PATIENT RECEIVED SCHEDULED MEDS PER EMAR. VITAL SIGNS REVIEWED. PIV TO R HAND SALINE LOCKED. BED ALARM ON FOR SAFETY. CALL LIGHT IN [facility].
[2023-01-11 19:43] VITALS: BP 110/73
--- NOTE | 2023-01-12 01:15 | NUR ---
PT C/O INSOMNIA, REQUESTED FOR MEDICATION FOR SLEEP.
--- NOTE | 2023-01-12 01:35 | NUR ---
CALL BACK FROM . DR. JOHNSON NOTIFIED OF PATIENTS C/O INSOMINA AND REQUESTING SOMETHING FOR SLEEP. DR. JOHNSON ORDERED 6MG MELATONIN AT BEDTIME AND A ONE TIME DOSE OF 6MG OF MELATONIN NOW.
[2023-01-12 03:34] VITALS: BP 99/80
[2023-01-12 04:56] LABS: Hematocrit 34.7 % (33.0-51.0); Hemoglobin 11.6 g/dL (11.5-16.0); Mean Corpuscular HGB 33.9 pg (26.0-34.0); Mean Corpuscular HGB Conc 33.4 g/dL (31.5-36.5); Mean Corpuscular Volume 102 fL (80-100); Mean Platelet Volume 9.9 fL (9.1-12.4); Platelet Count 116 K/mm3 (150-400); RDW Coefficient Variation 12.9 % (11.7-14.2); RDW Standard Deviation 47.9 fL (35.1-46.3); Red Blood Cell Count 3.42 M/mm3 (3.80-5.20); White Blood Cell Count 2.93 K/mm3 (4.00-11.30)
--- NOTE | 2023-01-12 05:28 | NUR ---
SHIFT SUMMARY PATIENT IS A&O X4. PATIENT IS PLESANT, COOPERATIVE WITH CARE, AND ABLE TO MAKE HIS NEEDS KNOWN. PATIENT AWAKE A LOT THIS EVENING REQUESTED SOMETHING FOR SLEEP, HOSPITALIST CALLED AND ORDERED MELATONIN. PT DENIES CHEST PAIN/PRESSURE/TIGHTNESS. PT HAS SOME DISCOMFOT TO HER RT SHOULDER D/T SURGERY ON RIGHT SHOULD IN OCTOBER OF 2022. PATIENT ABLE TO AMBULATE TO BATHROOM INDEPENDENTLY WILL CALL IF ASSISTANCE NEEDED. TREMORS TO BUE HAVE IMPROVED. BED IS LOCKED IN THE LOWEST POSITION WITH CALL LIGHT IN REACH. NO S/S OF DISTRESS NOTED AT THIS TIME.
[2023-01-12 05:44] LABS: Albumin, Blood 3.3 g/dL (3.4-5.0); Anion Gap 8 mmol/L (6-16); Blood Urea Nitrogen 22 mg/dL (8-24); Bun/Creatinine Ratio 33.2 (12.0-20.0); CO2, Blood 24 mmol/L (21-32); Calcium, Blood 9.1 mg/dL (8.5-10.1); Chloride, Blood 108 mmol/L (98-108); Creatinine, Blood 0.66 mg/dL (0.40-1.00); Glomerular Filtration Rate 98 (60-); Glucose, Blood 102 mg/dL (70-99); Phosphorus, Blood 4.6 mg/dL (2.5-4.9); Potassium, Blood 3.6 mmol/L (3.5-5.5); Sodium, Blood 140 mmol/L (136-145)
[2023-01-12 07:48] VITALS: BP 118/85
[2023-01-12] MEDS ORDERED: TIZA4 PO (12:38)
[2023-01-12 15:12] VITALS: BP 109/76
--- NOTE | 2023-01-12 16:38 | NUR ---
SHIFT SUMMARY; ANSHU COOPERATIVE WITH CARE TODAY. NOTED TO BE WALKING IN FOX WITH PHYSICAL THERAPY. DURING REPORT SHE DOES NOT WANT STAFF TO INCLUDE THE FACT SHE IS AN ALCOHOLIC OR ON LIBRIUM IN BEDSIDE REPORT. (WILL PASS THIS ON TO NOC SHIFT RN) PER CARE MANAGEMENT PATIENT TO GO TO [facility] POSSIBLY ON THURSDAY. PENDING INSURANCE APPROVAL. PATIENT HAS PLEASANT AFFECT AND IS COOPERATIVE WITH CARE TODAY. TREMORS ARE NOTED TO BILATERAL HANDS.
[2023-01-12 19:07] VITALS: BP 112/75
[2023-01-13 03:22] VITALS: BP 116/69
--- NOTE | 2023-01-13 07:34 | NUR ---
END OF SHIFT SUMMARY PT A&O x3-4, VSS, AFEBRILE. PT CALM AND COOPERATIVE WITH CARE PROVIDED. PT APPEARED TO BE SLEEPING WELL ON AND OFF THROUGHOUT THE NIGHT. NO MAJOR EVENTS OCCURRED. PT ABLE TO MAKE NEEDS KNOWN. NO TREMORS NOTED DURING ASSESSMENT. PT ASKED TO WALK THE HALLWAY WITH CARE STAFF. PT USES A FWW FOR SAFETY WHILE AMBULATING, PT HAS STEADY GAIT. PT CALLS APPROPRIATELY. PAIN MANAGED WITH PRN OXYCODONE. PT COMPLIANT WITH MEDICATION ADMINISTRATION. CALL LIGHT WITHIN REACH, WCTM.
[2023-01-13 15:14] VITALS: BP 116/79
--- NOTE | 2023-01-13 17:21 | NUR ---
SHIFT SUMMARY; PATIENT THREATENS TO GO AMA TODAY HER MOM WILL BE HOME ALONE AT NIGHT AND SHE IS WORRIED ABOUT HER. PATIENT SAYS SHE IS VERY ANXIOUS. CONCERN THAT PATIENT WILL RECEIVE ATIVAN AND GO AMA AND NOT BE SAFE AT HOME. SHE WORKED WITH PT AND OT TODAY. WALKING IN HALLWAY WITH ONE PERSON ASSIST USING A FWW. PATIENT WAITING FOR APPROVAL FROM [facility] TO GO TO [facility].
[2023-01-13 19:29] VITALS: BP 110/76
[2023-01-14 04:34] VITALS: BP 103/64
--- NOTE | 2023-01-14 04:43 | NUR ---
SHIFT SUMMARY NOC PT A/O X 4. PLEASANT AND COOPERATIVE WITH CARE. AT BEGINNING OF SHIFT PT HAD SOME ANXIETY ABOUT HER MOTHER WHO SHE LIVES WITH AND CLAIMS TO BE CAREGIVER, BUT PT MOTHER HAS CORRECTION WARDEN 06/10. PT SHARED SOME THOUGHTS OF CONCERN AND STATED THAT THEY MIGHT LEAVE AMA, BUT AFTER DISCUSSING CONCERNS ABOUT PT MOTHER AND BELAYING THEM PT AGREED TO STAY. OTHERWISE NO OTHER EVENTS TO REPORT. PT STILL AWAITING INSURANCE APPROVAL FOR PLACEMENT AT [facility]. PT IS CURRENTLY RESTING WITH BED IN LOWEST POSITION, AND CALL LIGHT WITHIN REACH.
[2023-01-14 07:34] VITALS: BP 116/83
[2023-01-14 10:20] LABS: Influenza A, PCR NEGATIVE (NEGATIVE); Influenza B, PCR NEGATIVE (NEGATIVE); Resp Syncytial Virus, PCR NEGATIVE (NEGATIVE); SARS-Cov-2 (COVID-19) PCR, MMC NEGATIVE (NEGATIVE)
[2023-01-14] MEDS ORDERED: PROP60 PO (13:09)
[2023-01-14 14:49] VITALS: BP 129/82
--- NOTE | 2023-01-14 18:01 | NUR ---
SHIFT SUMMARY DISCHARGE TO SNF HELP UP DUE TO INSURANCE AUTH. PT VERY DISAPPOINTED BY THIS AND REFUSED DINNER. NO IV ACCESS ORDER OBTAINED AND IV REMOVED FOR COMFORT. PT SHOWERED TODAY. AMBULATED THE HALLWAY WITH THE AIDE AND TOLERATED WELL. NO OTHER ACUTE CHANGES IN ASSESSMENT AT THIS TIME. VS REVIEWED. CALL LIGHT IN REACH. DENIES OTHER NEEDS AT THIS TIME.
[2023-01-14 21:21] VITALS: BP 118/80
--- NOTE | 2023-01-15 05:05 | NUR ---
SHIFT SUMMARY PT SITTING UP IN BED DURING BEDSIDE REPORT FROM STEVIE RN- PT UPSET DURING REPORT WHEN DISCUSSING ADMITTING DIAGNOSIS OF ETOH- PT REPORTS NOT DRINKING EVERYDAY AND STATED, "THAT IS ALL THAT EVERYONE IS FIXATED ON IS THAT I DRINK ALCOHOL" EXPLAINED TO PT THAT WE ARE STATING ADMITTING DIAGNOSIS AND HELPED PT UNDERSTAND THAT SHE IS GOING TO SNF FOR STRENGTHENING- PT CALMED AND STATED UNDERSTANDING, PT TOOK SCHEDULED MEDICATIONS AT HS, PT USED CALL LIGHT APPROPRIATE IN THE SHIFT TO GO TO BATHROOM WITH SBA- PT BED LOW POSITION, CALL LIGHT WITHIN REACH
[2023-01-15 06:13] VITALS: BP 107/70
[2023-01-15 07:19] VITALS: BP 110/64
--- NOTE | 2023-01-15 11:23 | NUR ---
DISHCARGE NOTE PT DISCHARGED TO [facility], PICKED UP WHEELCHAIR TRANSPORT. PERSONAL BELONGING RETURNED, REPORT GIVEN TO ROCKY AT [facility].
== END 2023-01-15 11:26 | DRG 897 ==
LOC: ER 09:32 → MEDS 09:33 → ENPENDDIS 01-14 15:30 → MEDS 01-15 11:26
PROVIDERS: Emergency Medicine; Internal Medicine; ADMIT Internal Medicine
PROC: HZ2ZZZZ Detoxification Services for Substance Abuse Treatment (ICD-10-PCS; principal; 2023-01-08)
DX: F10.239 Alcohol dependence with withdrawal, unspecified (principal); D61.818 Other pancytopenia; E44.0 Moderate protein-calorie malnutrition; I10 Essential (primary) hypertension; F17.210 Nicotine dependence, cigarettes, uncomplicated; J44.9 Chronic obstructive pulmonary disease, unspecified; K21.9 Gastro-esophageal reflux disease without esophagitis; F32.A Depression, unspecified; G47.00 Insomnia, unspecified; E86.0 Dehydration; Z71.41 Alcohol abuse counseling and surveillance of alcoholic; Z11.52 Encounter for screening for COVID-19; Z79.899 Other long term (current) drug therapy; Z79.891 Long term (current) use of opiate analgesic; Z90.89 Acquired absence of other organs; Z98.890 Other specified postprocedural states; Z90.49 Acquired absence of other specified parts of digestive tract; Z71.6 Tobacco abuse counseling; Z68.24 Body mass index [BMI] 24.0-24.9, adult
CPT/HCPCS: 0241U; 36415; 70551; 80053; 80069; 83690; 83735; 84100; 84439; 84443; 84481; 85025; 85027; 94760; 96361; 96374; 97110; 97116; 97162; 97166; 97530; 97535; 99285-25; A9270; J1650; J2060; J3411; J7030

== ENCOUNTER 2023-10-07 18:20 | Inpatient (IN) | payer BC, MEDICARE, OTHER ==
[~2023-10-07] VITALS: Ht 167.6 cm; Wt 68.5 kg
[~2023-10-07 18:20] MED LIST changes: +AMLO10 PO; +ATOR80 PO; +BUPR150ER PO; +BUPROPION XL150 M1 PO; +CEPH500 PO; +CHLO25 PO; +LIDO700A20 TOP; +LOPE2C PO; +MIRALAX17 GM PO; +NICO21TP TOP; +Naltrexone HCl50 MG PO; +Nicoderm Cq1 EACH TOP; +Norco 5-325 Ta1 EACH PO; +OXYCODONE-ACET1 EAC3 PO; +PANT20 PO; +POTA10T PO; +PROP60 PO; +QUET100 PO; +SPIRIVA RESPIMAT4 G3 INH; +TIZA4 PO
[2023-10-07 18:46] LABS: BASOPHILS ABSOLUTE AUTO 0.03 K/mm3 (0.00-0.23); BASOPHILS PERCENT AUTO 1 % (0-2); EOSINOPHILS ABSOLUTE AUTO 0.23 K/mm3 (0.00-0.68); EOSINOPHILS PERCENT AUTO 5 % (0-6); Hematocrit 33.9 % (33.0-51.0); Hemoglobin 11.6 g/dL (11.5-16.0); IMMATURE GRAN ABSOLUTE AUTO 0.08 K/mm3 (0.00-0.10); IMMATURE GRAN PERCENT AUTO 2 % (0-1); LYMPHOCYTES ABSOLUTE AUTO 0.76 K/mm3 (0.84-5.20); LYMPHOCYTES PERCENT AUTO 17 % (21-46); MONOCYTES ABSOLUTE AUTO 0.49 K/mm3 (0.16-1.47); MONOCYTES PERCENT AUTO 11 % (4-13); Mean Corpuscular HGB 33.6 pg (26.0-34.0); Mean Corpuscular HGB Conc 34.2 g/dL (31.5-36.5); Mean Corpuscular Volume 98 fL (80-100); Mean Platelet Volume 9.6 fL (9.1-12.4); NEUTROPHILS ABSOLUTE AUTO 2.89 K/mm3 (1.96-9.15); NEUTROPHILS PERCENT AUTO 65 % (41-73); Platelet Count 124 K/mm3 (150-400); RDW Coefficient Variation 14.6 % (11.7-14.2); RDW Standard Deviation 52.9 fL (35.1-46.3); Red Blood Cell Count 3.45 M/mm3 (3.80-5.20); White Blood Cell Count 4.48 K/mm3 (4.00-11.30)
[2023-10-07 19:15] LABS: Ethanol (Alcohol), Blood, Med <3 mg/dL
[2023-10-07] MEDS ORDERED: Metoclopramide HCl 5MG / ML 2ML Vial IV ONE (19:30)
[2023-10-07 19:36] LABS: International Normalized Ratio 0.95; Prothrombin Time Results 10.2 Sec (9.7-11.5)
[2023-10-07 19:56] LABS: Alanine Aminotransfer (ALT/SGP 210 U/L (12-78); Albumin, Blood 3.8 g/dL (3.4-5.0); Albumin/Globulin Ratio 1.1 (0.8-1.8); Alk Phos 92 U/L (50-136); Anion Gap 11 mmol/L (3-11); Aspartate Aminotrans (AST/SGOT 280 U/L (12-37); Bilirubin, Total 0.6 mg/dL (0.1-1.0); Blood Urea Nitrogen 52 mg/dL (8-24); Bun/Creatinine Ratio 40.6 (12.0-20.0); CO2, Blood 23 mmol/L (21-32); Calcium, Blood 8.5 mg/dL (8.5-10.1); Chloride, Blood 105 mmol/L (98-108); Creatinine, Blood 1.28 mg/dL (0.40-1.00); Globulin, Blood 3.4 g/dL (2.2-4.0); Glomerular Filtration Rate 46 (60-); Glucose, Blood 126 mg/dL (70-99); Potassium, Blood 4.6 mmol/L (3.5-5.5); Sodium, Blood 134 mmol/L (136-145); Total Protein, Blood 7.2 g/dL (6.4-8.2)
[2023-10-07] MEDS ORDERED: Ondansetron HCl 2 MG / ML 2ML Vial IV PRN (22:10)
[2023-10-07] MEDS ORDERED: LORazepam 2 MG/ML 1ML Injection IM PRN (22:15)
[2023-10-07] MEDS ORDERED: ChlordiazePOXIDE 25 MG Cap PO PRN ×2 (22:15→22:25)
[2023-10-07] MEDS ORDERED: LORazepam 2 MG/ML 1ML Injection IV PRN ×3 (22:20)
[2023-10-07] MEDS ORDERED: LORazepam 1 MG Tab PO PRN ×2 (22:20)
[2023-10-07] MEDS ORDERED: NS 1,000 ML IV SCH (23:00)
[2023-10-07] MEDS ORDERED: Lidocaine 4% 1 Patch TOP SCH (23:00)
[2023-10-08] VITALS (7 sets, daily range): BP systolic 116–150; BP diastolic 75–90
[2023-10-08] MEDS ORDERED: ALBU90OI INH (00:07)
[2023-10-08] MEDS ORDERED: ACET500 PO (00:08)
[2023-10-08] MEDS ORDERED: CATAPRES0.1 MG PO (00:09)
[2023-10-08] MEDS ORDERED: GABA300 PO (00:10)
[2023-10-08] MEDS ORDERED: HYDPAM25 PO (00:11)
[2023-10-08] MEDS ORDERED: METOPROLOL TART25 MG PO (00:12)
[2023-10-08] MEDS ORDERED: Phenergan25 M1 PO (00:13)
[2023-10-08] MEDS ORDERED: METSALMENC TOP (00:14)
[2023-10-08] MEDS ORDERED: MELO7.5 PO (00:14)
[2023-10-08] MEDS ORDERED: MELATONIN5 M1 PO (00:14)
[2023-10-08] MEDS ORDERED: Hair, Skin & N1 EACH PO (00:15)
[2023-10-08] MEDS ORDERED: NICO21TP TOP (00:25)
[2023-10-08] MEDS ORDERED: NICOTINE LOZENGE2 MG MM (00:25)
[2023-10-08] MEDS ORDERED: TIZA4 PO (00:28)
[2023-10-08] MEDS ORDERED: TRAZ50 PO (00:29)
--- NOTE | 2023-10-08 01:14 | NUR ---
ARRIVAL TO PCU: RECEIVED REPORT FROM JOANNE BURGESS. PT ARRIVED TO PCU ROOM 09 AT 2355 VIA GURNEY. PT ABLE TO SLIDE HERSELF ACROSS TO PCU BED WITH MINIMAL ASSIST. PT ALERT AND ORIENTED TO SELF. CONFUSED AT TIMES. KNOWS THE YEAR BUT NOT THE MONTH, STATES SHE IS IN [place]. EASILY REORIENTED AT THIS TIME. PT ENDORSES VISUAL AND AUDITORY HALLUCINATIONS, ENDORSES HEADACHE AND HAS MINIMAL TREMOR NOTED. CIWA 12 UPON ARRIVAL. MEDICATED PER EMAR FOR WITHDRAWAL SYMPTOMS. PT ON RA WITH SPO2 >95%. CHIEF OPHTHALMIC TECHNICIAN IN PLACE, SR WITH HR 60'S. SBP 140'S. AFEBRILE. PT DENIES CHEST PAIN/PRESSURE AND SOB. PT DOES HAVE WEAKNESS NOTED IN RIGHT SHOULDER AREA FROM PREVIOUS FRACTURE. ABLE TO SHIFT AROUND IN BED WITH MINIMAL ASSIST. PIV TO RAC PATENT AND SALINE LOCKED. TOLERATING PO MEDS WELL WITH NO C/O N/V. PUREWICK IN PLACE, DRAINING YELLOW URINE TO SUCTION. NO BM YET. BED LOW AND LOCKED, CALL LIGHT IN REACH.
[2023-10-08] MEDS ORDERED: Tiotropium Bromide 2.5 MCG/ACT MIST INHAL (10 ACT/4 GM) INH SCH (01:35)
[2023-10-08 03:42] LABS: BASOPHILS ABSOLUTE AUTO 0.04 K/mm3 (0.00-0.23); BASOPHILS PERCENT AUTO 1 % (0-2); EOSINOPHILS ABSOLUTE AUTO 0.19 K/mm3 (0.00-0.68); EOSINOPHILS PERCENT AUTO 5 % (0-6); Hematocrit 35.2 % (33.0-51.0); Hemoglobin 11.8 g/dL (11.5-16.0); IMMATURE GRAN ABSOLUTE AUTO 0.03 K/mm3 (0.00-0.10); IMMATURE GRAN PERCENT AUTO 1 % (0-1); LYMPHOCYTES ABSOLUTE AUTO 0.99 K/mm3 (0.84-5.20); LYMPHOCYTES PERCENT AUTO 26 % (21-46); MONOCYTES PERCENT AUTO 10 % (4-13); Mean Corpuscular HGB 32.8 pg (26.0-34.0); Mean Corpuscular HGB Conc 33.5 g/dL (31.5-36.5); Mean Corpuscular Volume 98 fL (80-100); Mean Platelet Volume 9.6 fL (9.1-12.4); NEUTROPHILS ABSOLUTE AUTO 2.19 K/mm3 (1.96-9.15); NEUTROPHILS PERCENT AUTO 57 % (41-73); Platelet Count 139 K/mm3 (150-400); RDW Coefficient Variation 14.4 % (11.7-14.2); White Blood Cell Count 3.84 K/mm3 (4.00-11.30)
[2023-10-08 04:12] LABS: Albumin, Blood 3.7 g/dL (3.4-5.0); Albumin/Globulin Ratio 1.1 (0.8-1.8); Bilirubin, Total 0.7 mg/dL (0.1-1.0); Calcium, Blood 8.7 mg/dL (8.5-10.1); Creatinine, Blood 0.87 mg/dL (0.40-1.00); Globulin, Blood 3.5 g/dL (2.2-4.0); Magnesium, Blood 2.2 mg/dL (1.6-2.4); Potassium, Blood 4.4 mmol/L (3.5-5.5); Total Protein, Blood 7.2 g/dL (6.4-8.2)
[2023-10-08] MEDS ORDERED: Pantoprazole Sodium 20 MG Tab PO SCH (06:00)
--- NOTE | 2023-10-08 06:31 | NUR ---
SHIFT SUMMARY: PT REMAINS ALERT AND ORIENTED TO SELF. STILL A LITTLE CONFUSED AT TIMES. PT CIWA SCORE RANGING FROM 12-14. STILL HAVING MODERATE HALLUCINATIONS BOTH AUDITORY AND VISUAL. PT A LTTLE MORE TREMULOUS THIS MORNING. COOPERATIVE WITH CARE AND FOLLOWING COMMANDS. EASILY REDIRECTABLE. PT UNABLE TO VOID SINCE ARRIVAL TO ICU, BLADDER SCAN PERFORMED AND STRAIGHT CATHED WITH 1350 ML'S URINE OUT. NO BM YET. PIV TO RAC, PATENT AND SALINE LOCKED. PT ON RA WITH SPO2 >95%. NO C/O SOB. RN DISCHARGE IN PLACE, SB/SR, HR 50'S-60'S. SBP 130'S-150'S. DENIES CHEST PAIN/PRESSURE. BED LOW AND LOCKED, CALL LIGHT IN REACH.
[2023-10-08] MEDS ORDERED: HydrOXYzine Pamoate 50 MG Cap PO PRN (06:55)
[2023-10-08] MEDS ORDERED: Albuterol HFA200 ACT/6.7 GM INH INH PRN (07:00)
--- NOTE | 2023-10-08 08:06 | NUR ---
NURSING PCU DAYSHIFT: Assumed care of pt at approx 0745. Alert, fairly oriented though unaware of the date, able to answer most orientation questions correctly. CIWA 10 with c/o auditory/visual hallucinations/sensitivities, anxiety, and tremors. C/O 10/10 chronic shoulder/back pain, treating w/positioning assistance as requested by patient. Skin intact w/no significant breakdown noted upon initial assessment. Tele in place, NSR w/HR 60's, no c/o CP/pressure, SBP 116 prior to a.m. meds, no noted edema. L/S cta t/o, O2 sat 100% on RA, no noted cough, denies dyspnea. Abd soft, NT, BT+, denies nausea, PW in place d/t some incontinence at rest and increased weakness w/ambulation. 20g PIV to RAC, s/l. No s/s of acute distress, able to use call light appropriately. Abd U/S completed, awaiting results. Treating w/d w/meds as ordered. Seen by PMD, awaiting new d/o. Bed alarm set for safety purposes, cont to monitor for any changes.
[2023-10-08] MEDS ORDERED: Polyethylene Glycol 3350 17 gm PO SCH (09:00)
[2023-10-08] MEDS ORDERED: Multivitamins 1 Tab PO SCH (09:00)
[2023-10-08] MEDS ORDERED: Multivitamins/Minerals TAB PO SCH (09:00)
[2023-10-08] MEDS ORDERED: Nicotine 21 MG PATCH TOP SCH (09:00)
[2023-10-08] MEDS ORDERED: Folic Acid 1 MG in NS 50 ML IV SCH (09:00)
[2023-10-08] MEDS ORDERED: buPROPion HCL 150 MG TAB.SR.12H PO SCH (09:00)
[2023-10-08] MEDS ORDERED: Propranolol HCL 60 MG CAPCR PO SCH (09:00)
[2023-10-08] MEDS ORDERED: Thiamine HCl 100 MG in NS 50 ML IV SCH (09:00)
[2023-10-08] MEDS ORDERED: Enoxaparin 40 MG/0.4 ML SYR SC SCH (09:00)
[2023-10-08] MEDS ORDERED: FLUoxetine HCL 20 MG CAP PO SCH (09:00)
[2023-10-08] MEDS ORDERED: Atorvastatin 40 MG Tab PO SCH (09:00)
[2023-10-08] MEDS ORDERED: Acetaminophen 325 MG TABLET PO PRN (10:40)
--- NOTE | 2023-10-08 12:11 | NUR ---
[facility] UPDATE: Spoke w/[facility] staff and provided w/update. At point of anticipated discharge from hospital, patient will be beyond 5 day detox stay at [facility] facility and will not be returning to that location. [facility] staff will bring pt belongings to hospital. Care management notified of update for discharge planning.
[2023-10-08 18:10] LABS: Source, Urine Clean Catch
--- NOTE | 2023-10-08 18:10 | NUR ---
NURSING PCU DAYSHIFT SUMMARY: No significant changes noted t/o the shift. Pt continues to experience w/d symptoms including tremors, visual/auditory halucinations, anxiety. Treating w/ativan and librium. Pt has slept well intermittently t/o the shift. Arouses to verbal stimuli, follows directions w/o difficulty. Sat on edge of bed for meals and used call light appropriately other than one time when pt attempted to sneak to the door to shut it after being told it had to remain open. Pt stating that she does want to go home tomorrow and verbalized understanding how significant her w/d symptoms remain. Worked with physical therapy, tolerated very well, ambulated t/o the halls w/FWW and gaitbelt.
[2023-10-08 18:19] LABS: Appearance, Urine Clear (Clear); Bilirubin, Urine Neg (Neg); Blood, Urine Neg (Neg); Color, Urine Yellow (P-Yellow); Glucose Qualitative, Urine Neg (Neg); Ketones, Urine Neg (Neg); Leukocyte Esterase, Urine Neg (Neg); Nitrite, Urine Neg (Neg); Protein, Urine Neg (Neg); Specific Gravity, Urine 1.015 (1.003-1.022); Urobilinogen, Urine NORM (Normal)
[2023-10-08 18:31] LABS: U Benzodiazapine Screen DETECTED
[2023-10-08 18:32] LABS: U Amphetamine Screen Not Detected; U Barbituate Screen Not Detected; U Buprenorphine Screen Not Detected; U Cannabinoids Screen Not Detected; U Cocaine Screen Not Detected; U Methadone Screen Not Detected; U Methamphetamine Screen Not Detected; U Opiates Screen Not Detected; U Oxycodone Screen Not Detected; U Phencyclidine Screen Not Detected
[2023-10-08] MEDS ORDERED: Melatonin 5 MG Tablet PO SCH (21:00)
[2023-10-08] MEDS ORDERED: QUEtiapine Fumarate 50 MG TAB PO SCH (21:00)
[2023-10-09 00:13] VITALS: BP 130/91
[2023-10-09 03:47] LABS: BASOPHILS ABSOLUTE AUTO 0.06 K/mm3 (0.00-0.23); BASOPHILS PERCENT AUTO 1 % (0-2); EOSINOPHILS PERCENT AUTO 6 % (0-6); Hematocrit 37.1 % (33.0-51.0); Hemoglobin 12.7 g/dL (11.5-16.0); IMMATURE GRAN ABSOLUTE AUTO 0.06 K/mm3 (0.00-0.10); IMMATURE GRAN PERCENT AUTO 1 % (0-1); LYMPHOCYTES ABSOLUTE AUTO 1.31 K/mm3 (0.84-5.20); LYMPHOCYTES PERCENT AUTO 24 % (21-46); MONOCYTES ABSOLUTE AUTO 0.73 K/mm3 (0.16-1.47); MONOCYTES PERCENT AUTO 14 % (4-13); Mean Corpuscular HGB Conc 34.2 g/dL (31.5-36.5); Mean Corpuscular Volume 96 fL (80-100); Mean Platelet Volume 9.6 fL (9.1-12.4); NEUTROPHILS ABSOLUTE AUTO 2.93 K/mm3 (1.96-9.15); NEUTROPHILS PERCENT AUTO 54 % (41-73); Platelet Count 158 K/mm3 (150-400); RDW Coefficient Variation 14.1 % (11.7-14.2); RDW Standard Deviation 50.3 fL (35.1-46.3); Red Blood Cell Count 3.85 M/mm3 (3.80-5.20); White Blood Cell Count 5.39 K/mm3 (4.00-11.30)
[2023-10-09 04:15] LABS: Albumin, Blood 3.9 g/dL (3.4-5.0); Albumin/Globulin Ratio 1.1 (0.8-1.8); Bilirubin, Total 0.7 mg/dL (0.1-1.0); Bun/Creatinine Ratio 40.9 (12.0-20.0); Calcium, Blood 9.1 mg/dL (8.5-10.1); Creatinine, Blood 0.86 mg/dL (0.40-1.00); Globulin, Blood 3.7 g/dL (2.2-4.0); Potassium, Blood 4.6 mmol/L (3.5-5.5); Total Protein, Blood 7.6 g/dL (6.4-8.2)
[2023-10-09 04:57] VITALS: BP 149/101
[2023-10-09 07:17] VITALS: BP 157/104
[2023-10-09] MEDS ORDERED: OLANZapine 5 MG Tab PO ONE (07:45)
--- NOTE | 2023-10-09 08:42 | NUR ---
AM NOTE this rn assumed care at 0700. tele sinus rhythm 60-70s. blood pressure hypertensive, medicated per emar. patient alert and oriented intermittently to being in the hopsital, self, person, and disoriented to days less than two days. patient will say things like "should i cross the street now" this rn will ask cross the street to where and patient will state "cross the street home" and attempt to get out of bed and this rn explains that she is in the hospital. patient when getting up out of bed looked out the window and began to grumble under her breath and this rn asked what she said, patient stated seeing ex outside the window and doesnt want to see him. this rn informed patient of no one outside the window, she then said "hes in the car" this rn said that parking is employee parking only, and patient said "he is somewhere in the car then". this rn reinforeced that the patient is safe in the hospital. ciwa score 8-14 md nay ly in to see patient and performed assessment and new orders placed. see ciwa assessmenting and shift assessment for further detials. patient denies pain, chest pain/pressure or shortness of breath. one on one sitter for patient safety due to constant getting out of bed and setting alarm off and fall yesterday. plan of care is up to date at this time
[2023-10-09] MEDS ORDERED: OLANZapine 5 MG Tab PO PRN (11:00)
[2023-10-09 11:39] VITALS: BP 131/89
[2023-10-09 15:03] VITALS: BP 97/74
--- NOTE | 2023-10-09 16:01 | NUR ---
ciwa score patient ciwa score ranges from 8-17. patient hallucinations have increased throughout the shift despite medicated per ciwa score. patient continously has hallucinations and believes she is at home and states to go in the other room and see her backyard and becomes agitated when this rn explains that she is at the hopsital. patient earlier thought she was in her car at [facility]. this rn informed md ly of this and of her wanting to leave. mannining in to see the patient and discussed the importances of staying in the hopsital. since this conversation patient has not been asking to leave. patient becomes more oriented to where she is at when taken for a ride in the wheelchair and shown around pcu unit, then she has able to say she is in the hospital on progressive care unit.
--- NOTE | 2023-10-09 18:01 | NUR ---
shift summary see previous notes. no acute changes since previous note. patient continues to have one on one sitter. vitals remain stable.
[2023-10-09 19:41] VITALS: BP 133/81
[2023-10-09] MEDS ORDERED: Gabapentin 300 MG Cap PO SCH (21:00)
[2023-10-10] VITALS (8 sets, daily range): BP systolic 94–121; BP diastolic 54–96
--- NOTE | 2023-10-10 05:06 | NUR ---
SHIFT SUMMARY ASSUMED CARE OF PT AT 1900. PT IS A/O X1-2. PT KNEW THEY WERE IN THE HOSPITAL BUT THOUGHT THEIR RELATIVE WAS IN THE HALLWAY AND CALLED FOR THEM AT 0100 THIS AM. PT SLEPT MOSTLY T/O THE NOC. VSS. NO NEW COMPLAINTS. ONLY MEDICATED WITH NIGHT TIME MEDS.
[2023-10-10 05:14] LABS: BASOPHILS ABSOLUTE AUTO 0.05 K/mm3 (0.00-0.23); BASOPHILS PERCENT AUTO 1 % (0-2); EOSINOPHILS ABSOLUTE AUTO 0.24 K/mm3 (0.00-0.68); EOSINOPHILS PERCENT AUTO 4 % (0-6); Hematocrit 38.3 % (33.0-51.0); Hemoglobin 13.2 g/dL (11.5-16.0); IMMATURE GRAN ABSOLUTE AUTO 0.06 K/mm3 (0.00-0.10); IMMATURE GRAN PERCENT AUTO 1 % (0-1); LYMPHOCYTES PERCENT AUTO 24 % (21-46); MONOCYTES ABSOLUTE AUTO 0.75 K/mm3 (0.16-1.47); MONOCYTES PERCENT AUTO 13 % (4-13); Mean Corpuscular HGB 33.8 pg (26.0-34.0); Mean Corpuscular HGB Conc 34.5 g/dL (31.5-36.5); Mean Corpuscular Volume 98 fL (80-100); Mean Platelet Volume 9.8 fL (9.1-12.4); NEUTROPHILS ABSOLUTE AUTO 3.47 K/mm3 (1.96-9.15); NEUTROPHILS PERCENT AUTO 58 % (41-73); Platelet Count 164 K/mm3 (150-400); RDW Coefficient Variation 14.4 % (11.7-14.2); RDW Standard Deviation 51.7 fL (35.1-46.3); Red Blood Cell Count 3.91 M/mm3 (3.80-5.20); White Blood Cell Count 5.97 K/mm3 (4.00-11.30)
[2023-10-10 05:41] LABS: Albumin, Blood 3.9 g/dL (3.4-5.0); Albumin/Globulin Ratio 1.1 (0.8-1.8); Bilirubin, Total 0.6 mg/dL (0.1-1.0); Bun/Creatinine Ratio 41.3 (12.0-20.0); Calcium, Blood 9.1 mg/dL (8.5-10.1); Creatinine, Blood 0.85 mg/dL (0.40-1.00); Globulin, Blood 3.6 g/dL (2.2-4.0); Magnesium, Blood 2.2 mg/dL (1.6-2.4); Potassium, Blood 4.4 mmol/L (3.5-5.5); Total Protein, Blood 7.5 g/dL (6.4-8.2)
[2023-10-10] MEDS ORDERED: Diazepam 5 MG / ML 2ML SYR IV ONE (09:00)
--- NOTE | 2023-10-10 09:44 | NUR ---
AM NOTE this rn assumed care at 0700. vital signs stable. tele sinus rhythm 60-70s. spo2 >95% on room air. patient is alert when woken up but will fall back asleep after a few mins of no conversation. patient knows she is at the hospital in [facility], person, self, and was off the day by one and the month by 3. patient able to make needs known at this time. ciwa 7 at this time. denies chest pain/pressure, pain, lidocaine patch in place, or shortness of breath. see shift assessment for further detials. md parker and Mic in room and sitter called this rn stating doctors requesting for the nurse, this rn in a isolation room and unable to go in. via vocera asked if the patient has had convulsions, this rn stated no, but knew the patient has history of essintial tremor and noted this, and asked to call charge account identification clerkAutumn mccray rn into room and updated this rn when this rn came out of room. md parker ordered one time valium. valium given by this rn. plan of care is up to date at this time.
--- NOTE | 2023-10-10 17:02 | NUR ---
update this rn back from break and was reassessing [facility]. patient had pillow over her face and this rn asked why does she have the pillow over her face. the patient stated " i dont want to live anymore" this rn asked the patient feels this way and the patient said tired of being in pain and she works hard for her mother and herself and keeps ending up in this situation. this rn provided therapeutic communication to the patient. this rn asked if the patient has plans to harm herself and the patient said "what do you think i am putting a pillow on my face". this rn called md Haile to update and md in to room at this time to to speak with the patient.
--- NOTE | 2023-10-10 17:24 | NUR ---
UPDATE pedrito Haile spoke with patient and determined that patient spoke in frustration and angry at her current situation and being here again. no new orders at this time.
--- NOTE | 2023-10-10 17:28 | NUR ---
[facility] update charge master specialist gabe called [facility] today to see about patient belongings. [facility] did not answer and voicemail was left. belongings are not in patient room bedsides a bra. per patient she had a backpack and cell phone and clothes.
--- NOTE | 2023-10-10 17:37 | NUR ---
shift summary see previous notes. ciwa currently at 11. patient is having hallucinations off and on. patient knows she is at the hospital but is unsure of the day of week, can say its september, but unsure what day in september, but is able to tell this rn its the end of september. vitals remain stable. tele sinus rhythm. plan up to date
--- NOTE | 2023-10-10 21:20 | NUR ---
PT IS ALERT AND ANSWERS ORIENTATION QUESTIONS APPROPRIATELY X 4. AT BEGINNING OF SHIFT PT SAID SHE WAS EXPERIENCING VISUAL HALLUCINATIONS, CIWA SCORE OF 12. PT WAS MEDICATED PER EMAR AND HAS BEEN SLEEPING SINCE, EASILY AROUSABLE. PT IN RA AND MAINTAINING 02 SATURATION ABOVE 92%, SHE DENIES SOB. HR SR 70'S SHE DENIES CHEST PAIN/PRESSURE, BP STABLE. PT IS CONTINENT OF BLADDER AND BOWELS. NO EDEMA NOTED. IV TO R AC PATENT/FLUSHED/SALINE LOCKED. PER DAY SHIFT REPORT, PT STILL HAS BELONGINGS AT [facility] THAT THEY NEED TO BRING OVER BEFORE SHE DISCHARGES. PT COMPLAINED OF HEADACHE AT BEGINNING OF SHIFT AND SHE WAS MEDICATED PER EMAR. PT RESTING IN BED WITH UNLABORED AND EVEN BREATHING, CALL LIGHT WITHIN REACH AND BED ALARM ON FOR SAFETY.
[2023-10-11 03:28] VITALS: BP 125/79
[2023-10-11 04:44] LABS: Bilirubin, Total 0.8 mg/dL (0.1-1.0); Bun/Creatinine Ratio 36.4 (12.0-20.0); Calcium, Blood 9.3 mg/dL (8.5-10.1); Creatinine, Blood 1.07 mg/dL (0.40-1.00); Globulin, Blood 3.9 g/dL (2.2-4.0); Potassium, Blood 4.2 mmol/L (3.5-5.5); Total Protein, Blood 7.9 g/dL (6.4-8.2)
--- NOTE | 2023-10-11 06:15 | NUR ---
PT'S OXYGEN SATURATION INTO MID/HIGH 80'S INTERMITTENTLY DURING SLEEP, 2L NC APPLIED DURING SLEEP AND PT MAINTAINED 02 SATURATION ABOVE 02%. NO ACUTE CHANGES SINCE PREVIOUS NOTE. PT RESTING IN BED WITH UNLABORED AND EVEN BREATHING. CALL LIGHT WITHIN REACH.
[2023-10-11 07:13] VITALS: BP 107/83
[2023-10-11] MEDS ORDERED: Lactated Ringer's 1,000 ML IV SCH (08:00)
--- NOTE | 2023-10-11 12:55 | NUR ---
THE PT WAS AWAKE IN BED AND WHEN OFFERED HER LUNCH. SHE STATED SHE DID NOT WANT IT. SHE WAS OFFERED AN ALTERNATIVE AND SHE SAID, " I AM NOT GOING TO EAT ANYTHING". WHEN ASKED WHY, SHE STATES " I AM JUST NOT GOING TO". I ASKED IF ANYTHING COULD BE DONE SO SHE WOULD BE WILLING TO EAT. SHE STATED SHE WANTS HER BAG FROM [facility] AND WANTS TO LEAVE. THEN SHE STATED SHE WAS CONCERED HOW SHE WAS GOING TO GET HER MEDICATIONS. I EXPLAINED WHEN MEDICALLY CLEARED BY THE HOSPITALIST'S WE WILL HAVE MEDICATIONS SENT TO HER PHARMACY AT DISCHARGE. IF SHE LEAVES AGAINST MEDICAL ADVICE THEN SHE WONT HAVE MEDICATIONS FROM THE HOSP. ALSO, I EXPLAINED THAT SHE WILL GET WEAKER AND THE DR'S MIGHT NOT WANT TO DISCHARGE HER IF SHE IS NOT EATING. THE PT THEN ASKED FOR HER LUNCH TRAY. WE HAVE CALLED [facility] MANY TIMES AND THEY WERE SUPPOSED TO BRING THE PT'S BELONGINGS A COUPLE DAYS AGO. WE ARE CALLING TO FOLLOW UP.
[2023-10-11 15:05] VITALS: BP 92/65
[2023-10-11 16:27] VITALS: BP 113/80
--- NOTE | 2023-10-11 16:30 | NUR ---
SHIFT SUMMARY-PCU THE PT IS ALERT AND ORIENTEDX3, ABOUT 1550 SHE STARTED GETTING MORE ANXIOUS BECAUSE SHE IS WORRIED ABOUT HER CAT AND WANTS HER BELONGINGS FROM [facility]. SHE SET HER BED ALARM OFF ONCE AT THIS TIME. WE TRIED CALLING [facility] AGAIN AND DID NOT GET AHOLD OF ANYONE. SHE HAS BEEN ON RA TODAY W/ SP02 >90%; PT DENIES SOB. SHE HAD A HEADACHE AND AN EXACERBATION OF HER RIGHT SHOULDER PAIN. SHE WAS GIVEN TYLENOL AND A HEATING PAD. THE PT PREFERS FOR THE ROOM TO BE DARK AND HAS BEEN SLEEPING MOST OF THE DAY. SHE IS TRANSFERING TO [facility], REPORT GIVEN TO GLILES BURGESS
--- NOTE | 2023-10-11 17:37 | NUR ---
SHIFT SUMMARY; PATIENT IS A PCU TRANSFER LATE THIS AFTERNOON. SHE IS AO X 4 ON ARRIVAL IS A 7 CIWA. ANGRY THAT HER BELONGINGS ARE STILL AT [facility]. SHE IS RECEIVING LR AT 100ML/HR X 1 BAG. SCABS NOTED TO HER LEFT KNEE DANNI SAYS FROM A FALL YESTERDAY IN PCU. BED ALARM ON FOR PATIENT SAFETY SINCE SHE IS UNSTEADY ON HER FEET. PATIENT WANTING TO GO OUTSIDE TO SMOKE. EDUCATED ON HOSPITAL TOBACCO [facility]. PATIENT SAYS "THAT A LIE" LET PATIENT KNOW THAT IT IS TRUE AND THAT SHE IS VERY UNSTEADY ON HER FEET AND IS A FALL RISK. PATIENT BACK TO BED AND COVERS HEAD WITH PILLOW.
[2023-10-11 19:54] VITALS: BP 115/77
[2023-10-12 03:14] VITALS: BP 101/57
[2023-10-12 06:05] LABS: BASOPHILS ABSOLUTE AUTO 0.07 K/mm3 (0.00-0.23); BASOPHILS PERCENT AUTO 1 % (0-2); EOSINOPHILS ABSOLUTE AUTO 0.14 K/mm3 (0.00-0.68); EOSINOPHILS PERCENT AUTO 2 % (0-6); Hematocrit 40.7 % (33.0-51.0); Hemoglobin 13.6 g/dL (11.5-16.0); IMMATURE GRAN ABSOLUTE AUTO 0.05 K/mm3 (0.00-0.10); IMMATURE GRAN PERCENT AUTO 1 % (0-1); LYMPHOCYTES ABSOLUTE AUTO 1.71 K/mm3 (0.84-5.20); LYMPHOCYTES PERCENT AUTO 21 % (21-46); MONOCYTES ABSOLUTE AUTO 1.09 K/mm3 (0.16-1.47); MONOCYTES PERCENT AUTO 13 % (4-13); Mean Corpuscular HGB 33.2 pg (26.0-34.0); Mean Corpuscular HGB Conc 33.4 g/dL (31.5-36.5); Mean Corpuscular Volume 99 fL (80-100); Mean Platelet Volume 9.7 fL (9.1-12.4); NEUTROPHILS ABSOLUTE AUTO 5.11 K/mm3 (1.96-9.15); NEUTROPHILS PERCENT AUTO 63 % (41-73); Platelet Count 204 K/mm3 (150-400); RDW Coefficient Variation 14.3 % (11.7-14.2); RDW Standard Deviation 52.1 fL (35.1-46.3); White Blood Cell Count 8.17 K/mm3 (4.00-11.30)
[2023-10-12 06:27] LABS: Bun/Creatinine Ratio 30.1 (12.0-20.0); Calcium, Blood 9.2 mg/dL (8.5-10.1); Potassium, Blood 4.1 mmol/L (3.5-5.5)
--- NOTE | 2023-10-12 06:56 | NUR ---
SHIFT SUMMARY ALERT AND ORIENTATED X4 ADMITTED WITH ETOH WITH DRAWL. ELEVATED CREATINE LEVEL 1.7 AWOKE TWICE IN THE NIGHT DISORIENTATED THINING SHE WAS AT HER OLD HOUSE. SHE APPEARED TO BE ANNOYED SHE WAS AT THE HOSPITAL, BUT SHRUGGED HER SHOULDERS AND STATED "OH WELL" OFFERED PRNS FOR ANXIETY AND WITHDRAWL SYMPTOMS. ABLE TO AMBULATE TO RESTROOM WITH MIN ASSIST. JANET MORNING HAD COFFEE. APPEARED DISORIENTATED, WANTS HER PERSONAL BELONGINGS FROM [facility]. WALKED AROUND ROOM PUTTING HER PERSONAL ITEMS IN A PLASTIC BAG, ASKED NURSE IF THERE WERE ANY JOBS SHE COULD DO TO HELP OUT. WAS ABLE TO BE REDIRECTED BY PULL THROUGH HOOKER AT BED IN LOW POSITIONRAILS X2, CALL LIGHT WITHIN REACH.
[2023-10-12 07:17] VITALS: BP 110/76
[2023-10-12] MEDS ORDERED: Thiamine HCl 100 MG Tab PO SCH (09:00)
[2023-10-12] MEDS ORDERED: Folic Acid 1 MG TAB PO SCH (09:00)
[2023-10-12] MEDS ORDERED: GABA300 PO (11:48)
[2023-10-12] MEDS ORDERED: B-1100 M2 PO (11:48)
[2023-10-12] MEDS ORDERED: ACAMPROSATE PO (11:49)
[2023-10-12] MEDS ORDERED: Naltrexone HCl50 MG PO (12:55)
[2023-10-12] MEDS ORDERED: ACAMPROSATE CA333 MG PO (12:55)
--- NOTE | 2023-10-12 13:10 | NUR ---
SUMMARY- PT DISCHARGED WITH INSTRUCTIONS. SENT HOME WITH BACKPACK AND 2 BAGS OF BELONGINGS INCLUDING [employer] BAG OF MEDS ALL DELIVERED FROM [facility]. PT GOING HOME, WHEELCHAIR OUTSIDE, [place] TO [place] TO PT'S HOME. PT AMBULATORY AND HAPPY TO GO HOME TO SEE HER CAT.
== END 2023-10-12 12:58 | disposition home health service (06) | DRG 897 ==
LOC: ER 18:20 → PCU 23:27 → MEDS 10-11 17:24
PROVIDERS: Emergency Medicine; Family Medicine; Family Medicine Adult Medicine; Student in an Organized Health Care Education/Training Program; ADMIT Internal Medicine
DX: F10.231 Alcohol dependence with withdrawal delirium (principal); E72.20 Disorder of urea cycle metabolism, unspecified; R00.1 Bradycardia, unspecified; F41.8 Other specified anxiety disorders; E78.5 Hyperlipidemia, unspecified; R74.8 Abnormal levels of other serum enzymes; G25.0 Essential tremor; I10 Essential (primary) hypertension; F17.210 Nicotine dependence, cigarettes, uncomplicated; D69.6 Thrombocytopenia, unspecified; R74.01 Elevation of levels of liver transaminase levels; R33.9 Retention of urine, unspecified; K75.81 Nonalcoholic steatohepatitis (NASH); J44.9 Chronic obstructive pulmonary disease, unspecified; K21.9 Gastro-esophageal reflux disease without esophagitis; Z98.890 Other specified postprocedural states; Z90.49 Acquired absence of other specified parts of digestive tract; Z90.89 Acquired absence of other organs; Z91.018 Allergy to other foods; Z79.899 Other long term (current) drug therapy; Z79.891 Long term (current) use of opiate analgesic; Z60.2 Problems related to living alone
CPT/HCPCS: 36415; 70450; 76705; 80048; 80053; 81003; 82140; 82607; 82746; 83735; 84100; 84443; 85025; 85610; 93005; 93010; 94640; 94664; 94760; 94762; 96374; 97110; 97116; 97129; 97162; 97165; 97530; 99285-25; A9270; C9113; J1650; J2060; J2765; J3360; J3411; J7050; J7120

== ENCOUNTER → 2023-12-28 | Outpatient (CLI) | payer MEDICARE, BC, OTHER ==
[~2023-12-28] MED LIST changes: +ACAMPROSATE CA333 MG PO; +ACAMPROSATE PO; +ACET500 PO; +ALBU90OI INH; +B-1100 M2 PO; +CATAPRES0.1 MG PO; +GABA300 PO; +HYDPAM25 PO; +Hair, Skin & N1 EACH PO; +MELATONIN5 M1 PO; +METOPROLOL TART25 MG PO; +METSALMENC TOP; +NICOTINE LOZENGE2 MG MM; +Phenergan25 M1 PO; +TRAZ50 PO
== END ==
LOC: LAB 15:56 → LAB SHORT 15:56
DX: I95.0 Idiopathic hypotension (principal)
CPT/HCPCS: 83880

== ENCOUNTER → 2024-02-05 | Outpatient (CLI) | payer MEDICARE, OTHER ==
[2024-02-05 14:11] LABS: Protein, Urine Quantitative 11.3 mg/dL (0.0-11.9)
[2024-02-05 14:14] LABS: Microalbumin, Urine Quant. 7.12 mg/L (0.000-20.000)
== END ==
LOC: LAB SHORT 10:50 → LAB 10:50 → LAB FUT 02-02 11:40
PROVIDERS: Internal Medicine Nephrology
DX: N18.30 Chronic kidney disease, stage 3 unspecified (principal); D63.1 Anemia in chronic kidney disease; N25.81 Secondary hyperparathyroidism of renal origin; E55.9 Vitamin D deficiency, unspecified; E78.00 Pure hypercholesterolemia, unspecified; R76.9 Abnormal immunological finding in serum, unspecified; R94.5 Abnormal results of liver function studies; D51.8 Other vitamin B12 deficiency anemias
CPT/HCPCS: 81050; 82043; 82570; 84156